=== PATIENT | female | born 2000 | race Caucasian/White ===

== ENCOUNTER 2025-02-06 08:08 | Emergency (ER) | payer BC, SELFPAY ==
--- NOTE | ~2025-02-06 | US_ITS ---
EXAMINATION: US OB <=14 wk fetus w TV DATE: 02/06/2025 10:17 INDICATION: Spotting and cramping during first trimester of . TECHNIQUE: Real-time pelvic ultrasound utilizing both a transvaginal and transabdominal probe was pe rformed. The interpreting radiologist was not present for the study. COMPARISON: None. FINDINGS: The uterus measures 9.3 x 5.2 x 6.3 cm. There is an intrauterine gestational sac. A yolk sac and fet al pole are identified. The crown rump length measures 9 mm, which correlates with an estimated gesta tional age of 7 weeks and 0 days. heart motion is identified measuring 130 beats per minute (bp m) by M-mode Doppler. The right ovary measures 3.5 x 1.7 x 2.9 cm. The left ovary measures 2.8 x 1.3 x 2.0 cm. Vascular poornima w identified in both ovaries on color Doppler. There is no free fluid in the pelvis. IMPRESSION: 1. Single living fetus with heart rate of 130 bpm. 2. Gestational age by ultrasound of 7 weeks 0 day(s) +/- 4 day(s) with ultrasound estimated date of delivery (FRANKY) of 09/25/2025. Reviewed, dictated and finalized at location A. IMPRESSION: 1. Single living fetus with heart rate of 130 bpm. 2. Gestational age by ultrasound of 7 weeks 0 day(s) +/- 4 day(s) with ultraso und estimated date of delivery (FRANKY) of 09/25/2025.
[2025-02-06 08:15] VITALS: BP 131/73; PULSE 88; RESP 16; TEMP 37.1; O2SAT 100
[2025-02-06 08:37] LABS: BEDSIDEPREGUCG Positive (Negative)
[2025-02-06 08:46] LABS: Add Urine Microscopic? YES; Appearance Urine Clear (Clear); Bacteria Urine Rare /hpf; Bilirubin Urine Negative (Negative); Blood Urine Negative (Negative); Color Urine Yellow (Yellow); Glucose Urine UA Negative (Negative); Ketones Urine Negative (Negative); Leukocyte Esterase Ur Trace LEU/UL (Negative); Nitrate Urine Negative (Negative); Non Pathogenic Casts 0-2; Protein Urine Negative (Negative); RBC Urine 0-2 /hpf (0-2); Specific Grav Ur 1.021 (1.001-1.035); Squamous Epithelial Cell Urine Moderate /hpf (Few); WBC Urine 0-5 /hpf (0-3)
[2025-02-06 09:01] LABS: Basophils Percent Auto 0.5 % (0.2-1.2); Eosinophils Absolute Auto 0.1 K/mm3 (0-0.3); Eosinophils Percent Auto 1.2 % (0-4.4); Hemoglobin 13.7 g/dL (12.0-15.0); Immature Granulocyte Absolute 0.03 K/mm3 (0.00-0.031); Immature Granulocyte Percent A 0.4 % (0-0.5); Lymphocytes Absolute Auto 1.51 K/mm3 (0.9-3.2); Lymphocytes Percent Auto 19.5 % (18.3-44.2); Mean Corpuscular HGB Conc 32.6 g/dl (32-36); Mean Corpuscular Hemoglobin 29.9 pg (26-34); Mean Corpuscular Volume 91.7 fl (80-100); Mean Platelet Volume 10.2 fl (7.4-10.4); Monocytes Absolute Auto 0.7 K/mm3 (0.1-0.6); Monocytes Percent Auto 8.5 % (2.6-8.5); Neutrophils Absolute Auto 5.4 K/mm3 (1.3-6.7); Neutrophils Percent Auto 69.9 % (45.5-73.1); Platelet Count Result 306 k/mm3 (150-375); Red Blood Count 4.58 M/mm3 (4.2-5.4); Red Cell Distribution Width 12.7 % (11.5-14.5); White Blood Count 7.8 K/mm3 (4.5-10.0)
[2025-02-06] MEDS: diphenhydrAMINE HCl INJ 50 MG/ML VIAL 25 MG IV PUSH (09:18)
[2025-02-06] MEDS: SODIUM CHLORIDE 0.9% IV 1,000 ML 999 ML IV CONT (09:18)
[2025-02-06] MEDS: METOCLOPRAMIDE HCL INJ 10 MG/2 ML VIAL IV PUSH (09:18)
[2025-02-06 09:23] LABS: Alanine Aminotransferase 22 U/L (6-35); Albumin Level 4.2 g/dL (3.5-5.1); Alkaline Phosphatase 63 U/L (38-126); Anion Gap 9 mmol/L (4-12); Aspartate Amino Transferase 27 U/L (14-36); Bilirubin,Total 0.7 mg/dL (0.2-1.3); Blood Urea Nitrogen 10 mg/dL (7-17); Calcium 9.2 mg/dL (8.4-10.2); Carbon Dioxide 22 mmol/L (22-30); Chloride 106 mmol/L (98-107); Estimated CRCL calculation 103 ml/min; Estimated Glomerular Filt Rate > 60; Glucose 92 mg/dL (65-110); Lipase 38 U/L (23-300); Potassium 3.9 mmol/L (3.4-5.0); Sodium 137 mmol/L (137-145); Total Protein 7.3 g/dL (6.3-8.2)
--- NOTE | 2025-02-06 09:23 | ED_ITS ---
HPI - Abdominal Pain General Chief Complaint: Abdominal Pain Stated Complaint: 8 wks preg, cramping Time Seen by Provider: 02/06/25 08:58 Source: patient Mode of arrival: ambulatory Limitations: no limitations History of Present Illness HPI narrative: Patient is a 24-year-old female who presents the ED with report of vaginal spotting, nausea, vomiting. Patient is currently 8 weeks gestation. , sees Dr. Ashley Cabrera with [facility]. Reports she has not been seen for this yet. Reported having slight vaginal spotting last night with wiping. States it was bright red. Also reports nausea and vomiting over the past couple of days, difficulty keeping down any food or drink. Reports intermittent lower abdominal cramping. Reports constipation, though reports her last bowel movement was yesterday. Denies dysuria or hematuria Related Data Allergies Allergy/AdvReac Type Severity Reaction Status Date / Time No Known Allergies Allergy Unverified 04/18/19 19:23 Review of Systems 2 Review of Systems: All systems reviewed & are unremarkable except as noted in HPI. All systems reviewed & are unremarkable except as noted in HPI and below Exam 2 Narrative: GENERAL: Well appearing, obese with BMI of 34.8, non-toxic, in no acute distress. HEAD: Normocephalic, atraumatic. RESPIRATORY: Airway patent, respirations nonlabored. Clear to auscultation bilaterally, no rales, rhonchi, wheezing. CARDIOVASCULAR: Regular rate and rhythm without murmurs, rubs, or gallops. ABDOMINAL: Soft, mild diffuse tenderness throughout abdomen, nondistended. Normoactive BS. MUSCULOSKELETAL: Moves all extremities. No gross deformities. SKIN: Warm, dry, normal color. NEURO: A&O X3. Speech clear. PSYCHIATRIC: Appropriate mood and affect. Normal interaction. Course Vital Signs Vital signs: Vital Signs Temperature 98.7 F 02/06/25 08:15 Pulse Rate 88 02/06/25 08:15 Respiratory Rate 16 02/06/25 08:15 Blood Pressure 131/73 02/06/25 08:15 Pulse Oximetry 100 02/06/25 08:15 Oxygen Delivery Room Air 02/06/25 08:15 Temperature 97.5 F L 02/06/25 11:15 Pulse Rate 72 02/06/25 11:15 Respiratory Rate 16 02/06/25 11:15 Blood Pressure 128/71 02/06/25 11:15 Pulse Oximetry 98 02/06/25 11:15 Oxygen Delivery Room Air 02/06/25 08:15 MDM - Abdominal Pain MDM Narrative Medical decision making narrative: Patient presented to ED with vaginal spotting, lower abdominal cramping, nausea, vomiting. Currently 8 weeks gestation. . Vital signs stable upon arrival. In no acute distress. Laboratory studies without leukocytosis or anemia. Stable electrolytes. Stable kidney function. UA without evidence of ketones, no signs of infection. Beta hCG of 81,131. No records to compare to. Patient's blood type O positive, no indication for RhoGAM. Ob ultrasound was obtained: IMPRESSION: 1. Single living fetus with heart rate of 130 bpm. 2. Gestational age by ultrasound of 7 weeks 0 day(s) +/- 4 day(s) with ultrasound estimated date of delivery (FRANKY) of 09/25/2025. Discussed lab and imaging findings with patient, overall reassuring workup. She is feeling much better with supportive therapy. Able to tolerate p.o. intake. Feels ready to go home. Will prescribe short course of Reglan for home use. Advised diagnosed threatened miscarriage, recommended she obtain repeat beta-hCG in 48 hours, have close follow-up with OBGYN for further evaluation. Discussed pelvic rest. Given return precautions. She is in agreement with plan. Discharged in stable condition. Medical Records Attestation: I reviewed the patient's medical records. Lab Data Attestation: I reviewed the patient's lab results. 02/06/25 08:31 02/06/25 08:31 Labs: Lab Results 02/06/25 02/06/25 02/06/25 Range/Units 08:31 08:34 09:13 WBC 7.8 (4.5-10.0) K/mm3 RBC 4.58 (4.2-5.4) M/mm3 Hgb 13.7 (12.0-15.0) g/dL Hct 42.0 (37.0-47.0) % MCV 91.7 (80-100) fl MCH 29.9 (26-34) pg MCHC 32.6 (32-36) g/dl RDW 12.7 (11.5-14.5) % Plt Count 306 (150-375) k/mm3 MPV 10.2 (7.4-10.4) fl Immature Gran % (Auto) 0.4 (0-0.5) % Neut % (Auto) 69.9 (45.5-73.1) % Lymph % (Auto) 19.5 (18.3-44.2) % [place] % (Auto) 8.5 (2.6-8.5) % Eos % (Auto) 1.2 (0-4.4) % Baso % (Auto) 0.5 (0.2-1.2) % Lymph # (Auto) 1.51 (0.9-3.2) K/mm3 [place] # (Auto) 0.7 H (0.1-0.6) K/mm3 Eos # (Auto) 0.1 (0-0.3) K/mm3 Baso # (Auto) 0.0 (0.0-0.1) K/mm3 Abs Immat Gran (auto) 0.03 (0.00-0.031) K/mm3 Absolute Neuts (auto) 5.4 (1.3-6.7) K/mm3 Absolute Nucleated RBC 0.000 (0.0-0.012) K/mm3 Nucleated RBC % 0.0 (0.0-0.2) % Sodium 137 (137-145) mmol/L Potassium 3.9 (3.4-5.0) mmol/L Chloride 106 (98-107) mmol/L Carbon Dioxide 22 (22-30) mmol/L Anion Gap 9 (4-12) mmol/L BUN 10 (7-17) mg/dL Creatinine 0.75 (0.7-1.0) mg/dL Estim Creat Clear Calc 103 ml/min Estimated GFR > 60 (59 - ) Glucose 92 (65-110) mg/dL Calcium 9.2 (8.4-10.2) mg/dL Magnesium 2.0 (1.6-2.3) mg/dL Total Bilirubin 0.7 (0.2-1.3) mg/dL AST 27 (14-36) U/L ALT 22 (6-35) U/L Alkaline Phosphatase 63 (38-126) U/L Total Protein 7.3 (6.3-8.2) g/dL Albumin 4.2 (3.5-5.1) g/dL Lipase 38 (23-300) U/L Beta HCG, Quant 20347.00 mIU/ML Urine Color Yellow (Yellow) Urine Appearance Clear (Clear) Urine pH 8.0 (5.0-9.0) Ur Specific [place] 1.021 (1.001-1.035) Urine Protein Negative (Negative) mg/dL Urine Glucose (UA) Negative (Negative) mg/dL Urine Ketones Negative (Negative) mg/dL Ur Blood (Man) Negative (Negative) Urine Nitrate Negative (Negative) Urine Bilirubin Negative (Negative) Urine Urobilinogen 1.0 (<2.0) mg/dL Leukocyte Esterase Rfl Trace H (Negative) MICHAEL/UL Urine RBC 0-2 (0-2) /hpf Urine WBC 0-5 (0-3) /hpf Ur Squamous Epith Cells Moderate (Few) /hpf Urine Bacteria Rare /hpf Urine Casts 0-2 POC Urine HCG, Qual Positive (Negative) Blood Type O Positive Antibody Screen Negative Screen Not Reportable Baby's Blood Type Not Reportable Baby's HANNY Not Reportable Doses of RhIg Required 0 Imaging Data Attestation: I personally reviewed and interpreted this imaging study as follows: Radiologist's impression: ITS Impressions Obstetrics Ultrasound 02/06/25 10:26 IMPRESSION: 1. Single living fetus with heart rate of 130 bpm. 2. Gestational age by ultrasound of 7 weeks 0 day(s) +/- 4 day(s) with ultrasound estimated date of delivery (FRANKY) of 09/25/2025. Discharge Plan Discharge Clinical Impression: Threatened miscarriage, 7 weeks gestation of Patient Disposition: Home Condition: Stable Instructions: Antibiotic Form, Threatened Miscarriage (ED), at 7 to 10 Weeks (ED) Additional Instructions: Obtain repeat beta-hCG in 48 hours, 02/08 at outpatient lab. Take lab order sheet with you. Stay well hydrated. Continue Zofran/Reglan as needed for nausea. Follow-up closely with your OBGYN for further evaluation. Continue to monitor bleeding. Return to ED for worsening or severe symptoms, unable to keep down food or drink, severe bleeding, severe pain, or any other symptoms of concern. Patient Language: [place]ian Prescriptions: New metoclopramide HCl 5 mg tablet 5 mg PO Q6H PRN (Reason: nausea and vomiting) Qty: 10 0RF Other Ambulatory Orders: Beta HCG Quantitative (Routine) Timeframe: [id number] Location: Determined by Patient Ordered By: Asmita Huizar Follow-up/Referrals: Deborah,Ashley Lantigua MD [Primary Care Provider] - Stand Alone Forms: Work/School Release IP Time of Disposition: 11:06
[2025-02-06 11:15] VITALS: BP 128/71; PULSE 72; RESP 16; TEMP 36.4; O2SAT 98
== END 2025-02-06 11:18 | disposition home or self-care (01) ==
PROVIDERS: Emergency Medicine; Emergency Provider Physician Assistant; PCP Obstetrics & Gynecology
DX: O20.0 Threatened abortion (principal); Z3A.01 Less than 8 weeks gestation of pregnancy
CPT/HCPCS: 36415; 76801; 76817; 80053; 81001; 81025; 83690; 83735; 84702; 85025; 85461; 86850; 86900; 86901; 96361; 96374; 96375; 99284; J1200; J2765; J7030